=== PATIENT | female | born 1990 | race Hispanic/Latino ===

== ENCOUNTER 2017-03-22 20:41 | Emergency (ER) | payer BC, OTHER ==
[2017-03-22 20:53] VITALS: BP 127/75; PULSE 76; RESP 16; TEMP 98.3; O2SAT 98
[2017-03-22] MEDS ORDERED: TDAP Vaccine 0.5 mL Syr IM ONE (20:59)
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
--- NOTE | 2017-03-23 12:08 | RAD ---
PROCEDURE: Left Knee Radiographs. HISTORY: Posttraumatic pain. COMPARISON: None. FINDINGS: BONES: Normal. No fracture. JOINTS: Normal. No osteoarthritis. JOINT EFFUSION: None. OTHER FINDINGS: None. IMPRESSION: No acute findings related to/accounting for the clinical presentation. No preliminary report provided by emergency department personnel.
== END 2017-03-22 22:15 | disposition home or self-care (01) ==
LOC: H.ER 20:41
DX: S80.212A Abrasion, left knee, initial encounter (principal); S89.92XA Unspecified injury of left lower leg, initial encounter; W19.XXXA Unspecified fall, initial encounter; Y92.89 Other specified places as the place of occurrence of the external cause; E05.90 Thyrotoxicosis, unspecified without thyrotoxic crisis or storm